=== PATIENT | female | born 1990 | race African-American/Black ===

== ENCOUNTER 2017-08-23 02:33 | Emergency (ER) | payer SELFPAY ==
[~2017-08-23] VITALS: Ht 175.3 cm; Wt 158.4 kg
[~2017-08-23 02:33] MED LIST: AMOXICILLIN500 MG OR; AMOXICILLIN500 MG PO; BACTRIM DS1 TAB PO; FERROUS SULF325 M1 PO; FLONASE NASAL50 MCG; PRENATA3 OR; ULTRAM50 M1 PO
[2017-08-23] MEDS ORDERED: PERCOCET 5/325M1 TAB PO (03:09)
[2017-08-23] MEDS ORDERED: KEFLEX500 M1 PO (03:09)
[2017-08-23 05:04] VITALS: BP 130/70
== END 2017-08-23 05:13 | disposition home or self-care (01) | DRG 603 ==
LOC: ED 02:33
DX: L03.031 Cellulitis of right toe (principal); B35.1 Tinea unguium; F17.210 Nicotine dependence, cigarettes, uncomplicated

== ENCOUNTER 2021-02-06 08:22 | Emergency (ER) | payer BC ==
[~2021-02-06] VITALS: Ht 175.3 cm; Wt 147.0 kg
[~2021-02-06 08:22] MED LIST changes: +KEFLEX500 M1 PO; +PERCOCET 5/325M1 TAB PO
[2021-02-06] MEDS ORDERED: MOTRIN800 MG PO (08:55)
[2021-02-06 09:17] VITALS: BP 133/73
== END 2021-02-06 09:24 | disposition home or self-care (01) | DRG 206 ==
LOC: ED 08:22
DX: M94.0 Chondrocostal junction syndrome [Tietze] (principal); F17.200 Nicotine dependence, unspecified, uncomplicated; E66.9 Obesity, unspecified; Z68.42 Body mass index [BMI] 45.0-49.9, adult

== ENCOUNTER 2023-07-31 22:17 | Emergency (ER) | payer BC ==
[~2023-07-31] VITALS: Ht 175.3 cm; Wt 150.0 kg
[~2023-07-31 22:17] MED LIST changes: +MOTRIN800 MG PO
[2023-07-31 23:05] LABS: BASO% 0.2 % (0-3); HEMOGLOBIN 11.1 g/dl (12.0-16.0); IMMATURE GRANULOCYTES 0.1 % (0.0-5.0); LYMPH% 28.9 % (15-41); MEAN CELL VOLUME 85.7 fL CALC (80.0-100.0); MEAN CORPUSCULAR HGB 26.4 pG CALC (26.0-32.0); MEAN CORPUSCULAR HGB CONC 30.8 g/dL CAL (32.0-36.0); MONO% 5.8 % (2-13); NEUT# 8.02 thou/uL (2.00-7.15); RED BLOOD COUNT 4.2 mill/uL (4.20-5.60); RED CELL DISTRI WIDTH 13.2 % (11.5-15.5)
[2023-07-31 23:25] LABS: ALBUMIN 3.5 g/dL (3.2-5.0); BILIRUBIN, TOTAL 0.2 mg/dL (0.02-1.3); CREATININE 0.9 mg/dL (0.5-1.0); POTASSIUM 4.3 mmol/l (3.5-5.1); TOTAL PROTEIN 6.6 g/dL (6.3-8.2)
[2023-08-01 00:16] LABS: URINE BILIRUBIN - DIPSTICK Negative (NEGATIVE); URINE BLOOD DIPSTICK Negative (NEGATIVE); URINE COLOR Yellow; URINE GLUCOSE - DIPSTICK Negative (NEGATIVE); URINE KETONE Negative (NEGATIVE); URINE LEUK ESTERASE Negative (NEGATIVE); URINE NITRITE - DIPSTICK Negative (Negative); URINE PROTEIN - DIPSTICK Negative (NEG-TRACE); URINE SPECIFIC GRAVITY 1.025; URINE UROBILINOGEN - DIPSTICK 0.2 E.U./dL (0.2)
[2023-08-01 00:29] VITALS: BP 124/84
== END 2023-08-01 00:33 | disposition home or self-care (01) | DRG 305 ==
LOC: ED 22:17
PROVIDERS: Family Medicine
DX: I10 Essential (primary) hypertension (principal); T46.1X6A Underdosing of calcium-channel blockers, initial encounter; Z91.128 Patient's intentional underdosing of medication regimen for other reason; F17.200 Nicotine dependence, unspecified, uncomplicated